=== PATIENT | female | born 1985 | race American Indian/Alaskan Native ===

== ENCOUNTER 2018-10-20 22:06 | Emergency (ER) | payer BC ==
[2018-10-20 23:54] LABS: Bilirubin,Urine NEG (Negative); Blood,Urine NEG (Negative); Color,Urine Straw (Yellow); Mucus,Urine FEW /HPF; Protein,Urine <15 mg/dL mg/dL (Negative); Urobilinogen,Urine < 2.0 mg/dL (<2.0); WBC,Urine < 1.0 /HPF (0.0-6.0)
[2018-10-21 00:02] LABS: HCG Qualitative,Urine Positive (Negative); RBC,Urine < 1.0 /HPF (0.0-6.0)
[2018-10-21] MEDS ORDERED: BENADRYL IV ONE (03:08)
[2018-10-21] MEDS ORDERED: TYLENOL PO ONE (03:08)
[2018-10-21] MEDS ORDERED: NACL 0.9% 1000 ML 1,000 ML IV ONE (03:08)
[2018-10-21 03:11] VITALS: BP 114/71
[2018-10-21] MEDS ORDERED: NACL 0.9% 1000 ML 0 ML ONE (03:16)
[2018-10-21] MEDS ORDERED: BENADRYL ONE (03:17)
[2018-10-21 03:52] LABS: Basophils % (Auto) 0.5 % (0.0-1.8); Eosinophils # (Auto) 0.2 K/mm3 (0.0-0.4); Eosinophils % (Auto) 2.9 % (0.0-4.3); Hematocrit 35.2 % (30.3-42.9); Hemoglobin 12.3 gm/dl (10.1-14.3); Lymphocytes # (Auto) 1.8 K/mm3 (1.2-5.4); Lymphocytes % (Auto) 22.4 % (13.4-35.0); Mean Corpuscular HGB Conc 35 % (30-34); Mean Corpuscular Volume 92 fl (79-97); Monocytes # (Auto) 0.8 K/mm3 (0.0-0.8); Monocytes % (Auto) 10.2 % (0.0-7.3); Platelet Count 191 K/mm3 (140-440); Red Blood Count 3.81 M/mm3 (3.65-5.03); Red Cell Distribution Width 13.3 % (13.2-15.2)
[2018-10-21 04:13] LABS: Alanine Aminotransferase 8 units/L (7-56); Albumin 3.1 g/dL (3.9-5); BUN/Creatinine Ratio 13; Blood Urea Nitrogen 5 mg/dL (7-17); Calcium 8.4 mg/dL (8.4-10.2); Hemolysis Index 13
--- NOTE | 2018-10-21 04:19 | XRay Report ---
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 CPT 94588 HISTORY: Shortness of breath COMPARISONS: None. FINDINGS: Heart: Normal. Mediastinum/Vessels: Normal. Lungs/Pleural space: Normal. Bony thorax: No acute osseous abnormality. Life support devices: None. IMPRESSION: No acute cardiopulmonary abnormality. This document is electronically signed by Kp Eckert MD., October 21 2018 04:17:19 AM ET
--- NOTE | 2018-10-21 05:01 | Ultrasound Report ---
PROCEDURE: US OB >= 14 WEEKS FETUS TECHNIQUE: Real-time sonography performed for focused follow-up or re-evaluation of each size/ growth parameters and amniotic fluid or re-evaluation of suspected or confirmed abnormality on prior imaging. HISTORY: abd pain COMPARISONS: None . FINDINGS: MATERNAL Uterus: Within normal limits . Cervix length: 3.8 cm. Internal Os: Closed . FETUS IUP: Single living intrauterine . Position: Breech . Placental position: Anterior, without previa . Amniotic fluid volume: Amniotic fluid index is 19.4 cm which is within normal limits. . Heart rate and rhythm: 133 BPM, Regular . anatomic survey: Normal . MEASUREMENTS BPD: 6.8 cm corresponding to 27 weeks and 3 days . HC: 24.3 cm corresponding to 26 weeks and 3 days . AC: 21.8 cm corresponding to 26 weeks and 2 days . FL: 4.93 cm corresponding to 26 weeks and 4 days . Mean Gestational Age (composite criteria): 26 weeks and 5 days . Ratio biometry: Normal . Estimated Weight: 940 grams +/- 139 grams. ounces +/- .ounces. percentile. Interval growth: Appropriate . Estimated Due Date (earliest scan): 01/22/2019 . IMPRESSION: 1. Single living intrauterine gestation at approximately 26 weeks and 5 days . 2. EDC by US 01/22/2019 . This document is electronically signed by pK Eckert MD., October 21 2018 04:59:06 AM ET
--- NOTE | 2018-10-21 05:16 | Emergency Department Report ---
<CLAYTON PARR - Last Filed: 10/21/18 05:11> ED Dizziness HPI - General Chief Complaint: Dizziness Stated Complaint: DIZZY/NAUSEATED/ANEMIA Time Seen by Provider: 10/21/18 03:07 Source: patient Mode of arrival: Ambulatory Limitations: No Limitations - History of Present Illness Initial Comments: Patient is a 32-year-old -[place] Citizen female with a history of sickle cell anemia patient is currently 21 weeks patient presents for which she believes is a sickle cell crisis symptoms include dizziness achiness and malaise is no fevers or chills no nausea vomiting patient doesn't abdominal cramping and vaginal bleeding is been no nausea vomiting since arrival to ED Patient is tolerating by mouth intake without symptoms patient states she was advised these to come and get checked out MD Complaint: dizziness Onset/Timin -: hour(s) Timing: gradual onset History of Same: Yes History of Trauma: No Severity: moderate Improves With: sleep Worsens With: position Associated Symptoms: malaise - Related Data Previous Rx's Medication Instructions Recorded Last Taken Type Acetaminophen [Tylenol] 650 mg PO QID PRN #30 capsule 10/21/18 Unknown Rx diphenhydrAMINE [Benadryl CAP] 25 mg PO Q8HR PRN #30 capsule 10/21/18 Unknown Rx Allergies Allergy/AdvReac Type Severity Reaction Status Date / Time No Known Allergies Allergy Verified 10/20/18 22:34 ED Review of Systems Constitutional: malaise. denies: chills, fever Eyes: denies: eye pain, eye discharge, vision change ENT: denies: ear pain, throat pain Respiratory: denies: cough, shortness of breath, wheezing Cardiovascular: denies: chest pain, palpitations Endocrine: no symptoms reported Gastrointestinal: denies: abdominal pain, nausea, diarrhea Genitourinary: denies: urgency, dysuria, frequency, hematuria, discharge, dyspareunia Musculoskeletal: denies: back pain, joint swelling, arthralgia, myalgia Skin: denies: rash, lesions Neurological: numbness. denies: headache, weakness, paresthesias, confusion, abnormal gait, vertigo Psychiatric: anxiety. denies: depression Hematological/Lymphatic: denies: easy bleeding, easy bruising ED Past Medical Hx - Surgical History Additional Surgical History: x1 - Social History Smoking Status: Never Smoker Substance Use Type: None - Medications Home Medications: Home Medications Medication Instructions Recorded Confirmed Last Taken Type Acetaminophen [Tylenol] 650 mg PO QID PRN #30 capsule 10/21/18 Unknown Rx diphenhydrAMINE [Benadryl CAP] 25 mg PO Q8HR PRN #30 capsule 10/21/18 Unknown Rx ED Physical Exam - General Limitations: No Limitations General appearance: alert, in no apparent distress - Head Head exam: Present: atraumatic, normocephalic - Eye Eye exam: Present: normal appearance, PERRL, EOMI Pupils: Present: normal accommodation - ENT ENT exam: Present: normal exam, normal orophraynx, mucous membranes moist, TM's normal bilaterally, normal external ear exam - Neck Neck exam: Present: normal inspection, full ROM. Absent: tenderness, me ningismus, lymphadenopathy, thyromegaly - Respiratory Respiratory exam: Present: normal lung sounds bilaterally, wheezes. Absent: respiratory distress, stridor, chest wall tenderness, prolonged expiratory - Cardiovascular Cardiovascular Exam: Present: regular rate, normal rhythm, normal heart sounds. Absent: systolic murmur, diastolic murmur, rubs, gallop - GI/Abdominal GI/Abdominal exam: Present: soft, normal bowel sounds. Absent: distended, tenderness, guarding, rebound, rigid, bruit, hernia - Rectal Rectal exam: Present: deferred - Extremities Exam Extremities exam: Present: normal inspection, normal capillary refill. Absent: full ROM, tenderness, pedal edema, joint swelling - Back Exam Back exam: Present: normal inspection, full ROM. Absent: tenderness, CVA tenderness (R), CVA tenderness (L), muscle spasm, paraspinal tenderness, vertebral tenderness, rash noted - Neurological Exam Neurological exam: Present: alert, oriented X3, CN II-XII intact, normal gait, reflexes normal. Absent: motor sensory deficit - Psychiatric Psychiatric exam: Present: normal affect, normal mood - Skin Skin exam: Present: warm, dry, intact, normal color. Absent: rash ED Medical Decision Making - Lab Data Result diagrams: 10/21/18 03:31 10/21/18 03:31 Labs 10/20/18 10/20/18 10/21/18 22:55 Unknown 03:31 WBC 8.2 RBC 3.81 Hgb 12.3 Hct 35.2 MCV 92 MCH 32 MCHC 35 H RDW 13.3 Plt Count 191 Lymph % (Auto) 22.4 Mayes % (Auto) 10.2 H Eos % (Auto) 2.9 Baso % (Auto) 0.5 Lymph # 1.8 Mayes # 0.8 Eos # 0.2 Baso # 0.0 Seg Neutrophils % 64.0 Seg Neutrophils # 5.2 Percent Retic 1.91 Sodium Potassium Chloride Carbon Dioxide Anion Gap BUN Creatinine Estimated GFR BUN/Creatinine Ratio Glucose Calcium Total Bilirubin AST ALT Alkaline Phosphatase Total Protein Albumin Albumin/Globulin Ratio HCG, Quant 99472 H Urine Color Straw Urine Turbidity Clear Urine pH 5.0 Ur Specific Vivian 1.008 Urine Protein <15 mg/dl Urine Glucose (UA) Neg Urine Ketones Neg Urine Blood Neg Urine Nitrite Neg Urine Bilirubin Neg Urine Urobilinogen < 2.0 Ur Leukocyte Esterase Neg Urine WBC (Auto) < 1.0 Urine RBC (Auto) < 1.0 Urine Mucus Few Urine HCG, Qual Positive A 10/21/18 03:31 WBC RBC Hgb Hct MCV MCH MCHC RDW Plt Count Lymph % (Auto) Mayes % (Auto) Eos % (Auto) Baso % (Auto) Lymph # Mayes # Eos # Baso # Seg Neutrophils % Seg Neutrophils # Percent Retic Sodium 135 L Potassium 3.9 Chloride 101.3 Carbon Dioxide 23 Anion Gap 15 BUN 5 L Creatinine 0.4 L Estimated GFR > 60 BUN/Creatinine Ratio 13 Glucose 76 Calcium 8.4 Total Bilirubin 0.20 AST 13 ALT 8 Alkaline Phosphatase 45 Total Protein 5.9 L Albumin 3.1 L Albumin/Globulin Ratio 1.1 HCG, Quant Urine Color Urine Turbidity Urine pH Ur Specific Vivian Urine Protein Urine Glucose (UA) Urine Ketones Urine Blood Urine Nitrite Urine Bilirubin Urine Urobilinogen Ur Leukocyte Esterase Urine WBC (Auto) Urine RBC (Auto) Urine Mucus Urine HCG, Qual - EKG Data EKG shows normal: sinus rhythm, axis, intervals, QRS complexes, ST-T waves Rate: normal - EKG Data When compared to previous EKG there are: previous EKG unavailable Interpretation: normal EKG (ekg interp by ED attending NSR no ST elevation no ectopy ) - Radiology Data Radiology results: report reviewed, image reviewed FINDINGS: MATERNAL Uterus: Within normal limits . Cervix length: 3.8 cm. Internal Os: Closed . FETUS IUP: Single living intrauterine . Position: Breech . Placental position: Anterior, without previa . Amniotic fluid volume: Amniotic fluid index is 19.4 cm which is within normal limits. . Heart rate and rhythm: 133 BPM, Regular . anatomic survey: Normal . MEASUREMENTS BPD: 6.8 cm corresponding to 27 weeks and 3 days . HC: 24.3 cm corresponding to 26 weeks and 3 days . AC: 21.8 cm corresponding to 26 weeks and 2 days . FL: 4.93 cm corresponding to 26 weeks and 4 days . Mean Gestational Age (composite criteria): 26 weeks and 5 days . Ratio biometry: Normal . Estimated Weight: 940 grams +/- 139 grams. ounces +/- .ounces. percentile. Interval growth: Appropriate . Estimated Due Date (earliest scan): 01/22/2019 . IMPRESSION: 1. Single living intrauterine gestation at approximately 26 weeks and 5 days . 2. EDC by US 01/22/2019 . 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 CPT 45352 HISTORY: Shortness of breath COMPARISONS: None. FINDINGS: Heart: Normal. Mediastinum/Vessels: Normal. Lungs/Pleural space: Normal. Bony thorax: No acute osseous abnormality. Life support devices: None. IMPRESSION: No acute cardiopulmonary abnormality. This document is electronically signed by Kp Vo MD., October 21 2018 04:17:19 AM ET Transcribed By: CO Dictated By: KP VO MD Electronically Authenticated By: KP VO MD Signed Date/Time: 10/21/18 0419 DD/ 0 TD/TT: 10/21/18340 - Medical Decision Making Patient advises symptoms are improved chest x-ray is normal infiltrate no opacities ultrasound normal signal IUP at 25 weeks 2 days heart rate is 133 bpm there was no proteinuria retic count normal plan: benadryl, tylenol continue to po hydrate as directed follow up with OBGYN Dr Camargo in 2 days , pcp in 2 days return to ed if symptoms worsen or return pt verbalized agreement and understanding of same. ED Disposition Clinical Impression: Qualifiers: Weeks of gestation: 25 weeks Qualified Code(s): Z3A.25 - 25 weeks gestation of Disposition: DC-01 TO HOME OR SELFCARE Is pt being admited?: No Does the pt Need Aspirin: No Condition: Stable Instructions: (ED), Dizziness (ED) Prescriptions: diphenhydrAMINE [Benadryl CAP] 25 mg PO Q8HR PRN #30 capsule PRN Reason: dizziness Acetaminophen [Tylenol] 650 mg PO QID PRN #30 capsule PRN Reason: pain Referrals: PRIMARY CARE, [Primary Care Provider] - 3-5 Days MAKAYLA CARRILLO MD [Referring] - 2-3 Days Forms: Work/School Release Form(ED) Time of Disposition: 05:22 <MANUEL LEAL - Last Filed: 10/21/18 05:29> ED Review of Systems ROS: Stated complaint: DIZZY/NAUSEATED/ANEMIA Other details as noted in HPI ED Course Vital Signs 10/20/18 10/21/18 10/21/18 22:32 03:10 04:37 Temperature 98.0 F 97.9 F Pulse Rate 101 H 83 Respiratory 16 16 16 Rate Blood Pressure 120/74 Blood Pressure 114/71 [Left] O2 Sat by Pulse 100 100 Oximetry ED Medical Decision Making - Lab Data Result diagrams: 10/21/18 03:31 10/21/18 03:31 Critical care attestation.: If time is entered above; I have spent that time in minutes in the direct care of this critically ill patient, excluding procedure time. ED Disposition Is pt being admited?: No Does the pt Need Aspirin: No
== END 2018-10-21 06:26 | disposition home or self-care (01) ==
LOC: EDBD → ED 22:06
DX: O26.892 Other specified pregnancy related conditions, second trimester (principal); R42 Dizziness and giddiness; O26.812 Pregnancy related exhaustion and fatigue, second trimester; Z3A.25 25 weeks gestation of pregnancy
CPT/HCPCS: 36415; 71045; 76805; 80053; 81001; 81025; 84702; 85025; 85045; 93005; 93010; 99284; J1200; 84703; J7030